=== PATIENT | male | born 1965 | race Caucasian/White ===

== ENCOUNTER 2017-06-02 07:53 | Day surgery (SDC) | payer BC ==
[2017-06-02] MEDS ORDERED: Propofol 200 MG/20 ML SDV ONE ×3 (08:16→09:41)
[2017-06-02] MEDS ORDERED: Midazolam 1 MG/ML 2 ML SDV ONE (08:16)
[2017-06-02] MEDS ORDERED: fentaNYL 100 MCG/2 ML SDV ONE (08:16)
[2017-06-02] MEDS ORDERED: Lactated Ringers 1,000 ML IV SCH (08:30)
--- NOTE | 2017-06-02 14:58 | OR ---
DATE OF PROCEDURE: 06/02/2017 PREOPERATIVE DIAGNOSES: 1. Gastroesophageal reflux disease. 2. Colon cancer screening. POSTOPERATIVE DIAGNOSES: 1. Gastroesophageal reflux disease. 2. Small gastric polyp. 3. Colonic diverticulosis. 4. Small colon polyp, 20 cm from the anal verge. PROCEDURE: Esophagogastroduodenoscopy with biopsy resection of small gastric polyp, biopsy of gastroesophageal junction, colonoscopy to the cecum with biopsy resection of small polyp 20 cm from the anal verge. SURGEON: Roger Jovel MD. ANESTHESIA: IV anesthesia with monitored anesthesia care. INDICATION: This 51-year-old white male is referred for upper and lower endoscopy. Indication for upper endoscopy is gastroesophageal reflux disease. He is taking a proton pump inhibitor. Indication for colonoscopy is colon cancer screening. He has never had a colonoscopic exam. I counseled him for upper and lower endoscopy with possible biopsy and/or polypectomy including risks and alternatives, and he gave his informed consent to proceed. PROCEDURE IN DETAIL: The patient was placed in the left lateral decubitus position. IV anesthesia was administered by the Anesthesia Service. Time-out was held. The flexible video Olympus upper endoscope was passed through his mouth, down the esophagus, and into his stomach. The scope was easily passed through the pylorus into the duodenum , reaching its third portion. The scope was then slowly withdrawn, examining the mucosa throughout. The duodenal mucosa appeared unremarkable. The scope was brought back through the pylorus. The antrum appeared unremarkable. The scope was retroflexed, the proximal stomach appeared unremarkable. The scope was straightened and brought up in the stomach. Here we saw a small polyp, which was removed with a single bite of the biopsy forceps. It has the appearance of a fundic gland polyp. The scope was brought up to the GE junction. This appeared fairly unremarkable. There was some irregularity of the Z-line. We did obtain multiple, totalling six biopsies of the gastroesophageal junction. The scope was then brought proximally up through the remainder of the esophagus, which otherwise appeared unremarkable and it was removed. Next a rectal exam was performed, which was unremarkable. The flexible video Olympus colonoscope was introduced through his anus, up his rectum, and out his colon all way to the cecum. Once the cecum was reached, the scope was slowly withdrawn, examining the mucosa throughout. We did see a few scattered, both right and left-sided diverticula. There was no bleeding or inflammation associated with any of them. At 20 cm from the anal verge, we encountered a small polyp, which was removed with the biopsy forceps. It has the appearance of a hyperplastic polyp. The scope was brought back into the rectum, where it was retroflexed. The distal rectum appeared unremarkable. The scope was straightened and removed. He tolerated the procedure well. Roger Jovel MD /[id number] MTDD
== END 2017-06-02 10:55 | disposition home or self-care (01) ==
LOC: JP.SDS 07:53
PROVIDERS: ATTEND Surgery
DX: Z12.11 Encounter for screening for malignant neoplasm of colon (principal); K63.5 Polyp of colon; K57.30 Diverticulosis of large intestine without perforation or abscess without bleeding; K31.7 Polyp of stomach and duodenum; K21.9 Gastro-esophageal reflux disease without esophagitis
CPT/HCPCS: 43239; 45380; J2250; J2704; J3010; J7120; 88305

== ENCOUNTER 2019-04-12 15:11 | Inpatient (IN) | payer BC ==
[2019-04-12] MEDS ORDERED: Lactated Ringers 1,000 ML IV ONE (16:39)
--- NOTE | 2019-04-12 16:47 | EDM.PDOC ---
ED HPI GENERAL MEDICAL PROBLEM - General Chief Complaint: Abdominal Pain Stated Complaint: ABD PAIN LOWER LEFT Time Seen by Provider: 04/12/19 16:25 Source of Information: Reports: Patient, Old Records, RN History Limitations: Reports: No Limitations - History of Present Illness INITIAL COMMENTS - FREE TEXT/NARRATIVE: 53 yo male presents with about a 1.5 day hx of progressive LLQ abdominal pain. Had some nausea, but no vomiting. No BM for a couple days. Not aware of fever. No hx of any abdominal surgeries. Onset: Gradual Onset Date: 04/11/19 Duration: Day(s): (1.5), Getting Worse Location: Reports: Abdomen (LLQ) Quality: Reports: Ache, Pressure Severity: Moderate Improves with: Reports: Rest Worsens with: Reports: Other (pushing over area if the worst.) Context: Reports: Other (see HPI) Associated Symptoms: Reports: Fever/Chills (chills, ? not sure about fever.), Nausea/Vomiting (no vomiting), Other (no BM x 2d). Denies: Rash Treatments DATA SYSTEMS MANAGER: Reports: Other (see below) (none) Left Lower Abdominal Pain Score (Numeric/FACES): 8 - Related Data Allergies Allergy/AdvReac Type Severity Reaction Status Date / Time No Known Allergies Allergy Verified 04/12/19 16:27 Home Meds: Home Meds NK [No Known Home Meds] 04/12/19 [History] Past Medical History HEENT History: Reports: Impaired Vision Respiratory History: Reports: Sleep Apnea Gastrointestinal History: Reports: GERD Musculoskeletal History: Reports: Fracture, Osteoarthritis Endocrine/Metabolic History: Reports: Obesity/BMI 30+ - Infectious Disease History Infectious Disease History: Reports: Chicken Pox - Past Surgical History HEENT Surgical History: Reports: Eye Surgery, Other (See Below) Other HEENT Surgeries/Procedures: cyst removed behind eye, lazy eye surgery GI Surgical History: Reports: Colonoscopy Musculoskeletal Surgical History: Reports: Other (See Below) Other Musculoskeletal Surgeries/Procedures:: Ankle screws Social & Family History - Tobacco Use Smoking Status *Q: Never Smoker - Caffeine Use Caffeine Use: Reports: Coffee - Alcohol Use Days Per Week of Alcohol Use: 2 Number of Drinks Per Day: 5 Total Drinks Per Week: 10 - Recreational Drug Use Recreational Drug Use: No ED ROS GENERAL - Review of Systems Review Of Systems: See Below Constitutional: Reports: Chills HEENT: Reports: No Symptoms Respiratory: Reports: No Symptoms Cardiovascular: Reports: No Symptoms Endocrine: Reports: No Symptoms GI/Abdominal: Reports: Abdominal Pain, Constipation, Decreased Appetite, Nausea. Denies: Black Stool, Bloody Stool, Diarrhea, Distension, Flatus, Hematemesis, Hematochezia, Melena, Vomiting : Reports: No Symptoms Musculoskeletal: Reports: No Symptoms Skin: Reports: No Symptoms Neurological: Reports: No Symptoms Psychiatric: Reports: No Symptoms Hematologic/Lymphatic: Reports: No Symptoms ED EXAM, GI/ABD - Physical Exam Exam: See Below Exam Limited By: No Limitations General Appearance: Alert, WD/WN, No Apparent Distress, Obese Eyes: Bilateral: Normal Appearance Ears: Normal External Exam, Normal Canal, Hearing Grossly Normal Nose: Normal Inspection, No Blood Throat/Mouth: Normal Inspection, Normal Lips, Normal Oropharynx, Normal Voice, No Airway Compromise Head: Atraumatic, Normocephalic Neck: Normal Inspection Respiratory/Chest: No Respiratory Distress, Lungs Clear, Normal Breath Sounds, No Accessory Muscle Use Cardiovascular: Regular Rate, Rhythm, No Edema GI/Abdominal Exam: Normal Bowel Sounds, Soft, No Distention, Tender (LLQ), Hernia (? indirect inguinal hernia LLQ on palpation.), Other (Obese). No: Distended (Male) Exam: No: Inguinal Lymphadenopathy Back Exam: Normal Inspection. No: CVA Tenderness (R), CVA Tenderness (L) Extremities: Normal Inspection, Normal Range of Motion, Non-Tender, No Pedal Edema Neurological: Alert, Oriented, CN II-XII Intact, Normal Cognition, No Motor/ Sensory Deficits Psychiatric: Normal Affect, Normal Mood Skin Exam: Warm, Dry, Intact, Normal Color, No Rash Course - Vital Signs Text/Narrative:: Dr. Doty here to see patient, 1757h Last Recorded V/S: Last Vital Signs Temp 36.7 C 04/12/19 16:26 Pulse 111 H 04/12/19 16:26 Resp 16 04/12/19 16:26 BP 134/91 H 04/12/19 16:26 Pulse Ox 94 L 04/12/19 16:26 - Orders/Labs/Meds Orders: Active Orders 24 hr Category Date Time Status CULTURE BLOOD [BC] Stat Lab 04/12/19 17:10 Received CULTURE BLOOD [BC] Stat Lab 04/12/19 17:20 Received Iopamidol [Isovue-300 (61%)] Med 04/12/19 17:00 Active 150 ml IV . DIRECTED Sodium Chloride 0.9% [Normal Saline] 80 ml Med 04/12/19 17:00 Active IV ASDIRECTED Sodium Chloride 0.9% [Saline Flush] Med 04/12/19 17:00 Active 10 ml FLUSH ASDIRECTED PRN Medication Orders Sodium Chloride (Normal Saline) 80 mls @ 3 mls/sec IV ASDIRECTED MIKEY Last Admin: 04/12/19 17:10 Dose: 3 mls/sec Iopamidol (Isovue-300 (61%)) 150 ml IV . DIRECTED MIKEY Last Admin: 04/12/19 17:10 Dose: 150 ml Sodium Chloride (Saline Flush) 10 ml FLUSH ASDIRECTED PRN PRN Reason: Keep Vein Open Last Admin: 04/12/19 17:10 Dose: 10 ml Labs: Laboratory Tests 04/12/19 04/12/19 04/12/19 Range/Units 16:45 16:46 16:46 WBC 20.5 H (4.5-11.0) K/uL RBC 5.37 (4.30-5.90) M/uL Hgb 15.7 H (12.0-15.0) g/dL Hct 47.5 (40.0-54.0) % MCV 89 (80-98) fL MCH 29 (27-31) pg MCHC 33 (32-36) % Plt Count 271 (150-400) K/uL Sodium 135 L (140-148) mmol/L Potassium 4.4 (3.6-5.2) mmol/L Chloride 98 L (100-108) mmol/L Carbon Dioxide 26 (21-32) mmol/L Anion Gap 15.4 H (5.0-14.0) mmol/L BUN 10 (7-18) mg/dL Creatinine 1.1 (0.8-1.3) mg/dL Est Cr Clr Drug Dosing 85.24 mL/min Estimated GFR (MDRD) > 60 (>60) Glucose 115 H (74-106) mg/dL Calcium 9.4 (8.5-10.1) mg/dL C-Reactive Protein 18.84 H (0.0-0.3) mg/dL Urine Color [place] A (YELLOW) Urine Appearance Clear (CLEAR) Urine pH 6.0 (5.0-8.0) Ur Specific [place] 1.020 (1.008-1.030) Urine Protein 30 H (NEGATIVE) mg/dL Urine Glucose (UA) Negative (NEGATIVE) mg/dL Urine Ketones 15 H (NEGATIVE) mg/dL Urine Occult Blood Trace-intact H (NEGATIVE) Urine Nitrite Negative (NEGATIVE) Urine Bilirubin Small H (NEGATIVE) Urine Urobilinogen 1.0 (0.2-1.0) EU/dL Ur Leukocyte Esterase Negative (NEGATIVE) Urine RBC 0-5 (0-5) Urine WBC 0-5 (0-5) Ur Epithelial Cells Few Amorphous Sediment Not seen Urine Bacteria Few Urine Mucus Many Meds: Medications Generic Name Dose Route Start Last Admin Trade Name Freq PRN Reason Stop Dose Admin Sodium Chloride 80 mls @ 3 mls/sec 04/12/19 17:00 04/12/19 17:10 Normal Saline IV 3 mls/sec ASDIRECTED MIKEY Administration Iopamidol 150 ml 04/12/19 17:00 04/12/19 17:10 Isovue-300 (61%) IV 150 ml . DIRECTED MIKEY Administration Sodium Chloride 10 ml 04/12/19 17:00 04/12/19 17:10 Saline Flush FLUSH 10 ml ASDIRECTED PRN Administration Keep Vein Open Discontinued Medications Generic Name Dose Route Start Last Admin Trade Name Freq PRN Reason Stop Dose Admin Lactated Ringer's 1,000 mls @ 1,000 mls/hr 04/12/19 16:39 04/12/19 17:00 Ringers, Lactated IV 04/12/19 17:38 1,000 mls/hr BOLUS ONE Administration - Radiology Interpretation Free Text/Narrative:: CT abd/pelvis with IV contrast- IMPRESSION: Thickening of the proximal sigmoid colon with adjacent inflammatory stranding consistent with diverticulitis. Hepatic steatosis. Dictated by Guilherme Perdue MD @ 04/12/2019 5:49:[address] Results Date: 04/12/19 Departure - Departure Time of Disposition: 18:00 Disposition: Admitted As Inpatient 66 Condition: Fair Clinical Impression: Diverticulitis - Discharge Information *PRESCRIPTION DRUG MONITORING PROGRAM REVIEWED*: No *COPY OF PRESCRIPTION DRUG MONITORING REPORT IN PATIENT JOANIE: No Referrals: Jesus White MD [Primary Care Provider] - Forms: ED Department Discharge - My Orders Last 24 Hours: My Active Orders 04/12/19 17:00 Iopamidol [Isovue-300 (61%)] 150 ml IV . DIRECTED Sodium Chloride 0.9% [Normal Saline] 80 ml IV ASDIRECTED Sodium Chloride 0.9% [Saline Flush] 10 ml FLUSH ASDIRECTED PRN 04/12/19 17:10 CULTURE BLOOD [BC] Stat 04/12/19 17:20 CULTURE BLOOD [BC] Stat - Assessment/Plan Last 24 Hours: My Active Orders 04/12/19 17:00 Iopamidol [Isovue-300 (61%)] 150 ml IV . DIRECTED Sodium Chloride 0.9% [Normal Saline] 80 ml IV ASDIRECTED Sodium Chloride 0.9% [Saline Flush] 10 ml FLUSH ASDIRECTED PRN 04/12/19 17:10 CULTURE BLOOD [BC] Stat 04/12/19 17:20 CULTURE BLOOD [BC] Stat
[2019-04-12] MEDS ORDERED: Iopamidol 612 MG/ML 150 ML Bottle IV SCH (17:00)
[2019-04-12] MEDS ORDERED: Sodium Chloride 0.9% 10 ML Syringe FLUSH PRN (17:00)
[2019-04-12] MEDS ORDERED: Sodium Chloride 0.9% 80 ML IV SCH (17:00)
--- NOTE | 2019-04-12 17:51 | CRLCT ---
INDICATION: Left lower quadrant pain, palpable abnormality TECHNIQUE: CT abdomen and pelvis acquired with IV contrast. 150 cc Isovue-300 COMPARISON: None FINDINGS: Lower chest: Unremarkable. Liver: Hepatic steatosis. Spleen: Unremarkable. Pancreas: Unremarkable. Gallbladder and bile ducts: Unremarkable. Kidneys: Unremarkable. Adrenal glands: Unremarkable. GI tract: And thickening of the proximal sigmoid colon with adjacent inflammatory stranding consistent with diverticulitis.. Appendix is normal. Vascular structures: Unremarkable. Lymph nodes: Unremarkable. Miscellaneous: Small fat containing umbilical hernia. No free air or significant free fluid. Pelvic Organs: Unremarkable. Bones: Unremarkable for age. IMPRESSION: Thickening of the proximal sigmoid colon with adjacent inflammatory stranding consistent with diverticulitis. Hepatic steatosis. Dictated by Guilherme Perdue MD @ 04/12/2019 5:49:31 PM Please note that all CT scans at this facility use dose modulation, iterative reconstruction, and/or weight-based dosing when appropriate to reduce radiation dose to as low as reasonably achievable. Dictated by: Guilherme Perdue MD @ 04/12/2019 17:49:39 (Electronically Signed)
[2019-04-12] MEDS ORDERED: metroNIDAZOLE/Normal Saline 500 MG in Premix Bag 1 BAG IV ONE (17:55)
[2019-04-12] MEDS ORDERED: Ciprofloxacin in D5W 400 MG in Premix Bag 1 BAG IV ONE ×2 (17:56)
--- NOTE | 2019-04-12 18:25 | PCM.HP.2 ---
H&P History of Present Illness - General Date of Service: 04/12/19 Admit Problem/Dx: Admission Diagnosis/Problem Admission Diagnosis/Problem Acute diverticulitis of intestine Source of Information: Patient, Provider History Limitations: Reports: No Limitations - History of Present Illness Initial Comments - Free Text/Narative: CC: my belly hurts HPI: Danial presents to the emergency room today with nearly 48 hours worth of progressive left lower quadrant abdominal pain He describes a constant ache which is mild and radiates throughout the left side and lower portion of his abdomen. When he moves around or sits up he has a moderate to moderately severe sharp pain that shoots through the left abdomen. If he lays still the pain gets better.Coughing makes the pain worse. He thought maybe he was constipated so he has tried some laxatives but has not had any results. he reports subjective fevers and had episodes of sweats at home. He has had episodes of nausea but no vomiting. He has never had anything like this in the past. He has not had a bowel movement in the past 2 days. Prior to that bowel movements were normal. No complaints of shortness of breath, chest tightness or change in urinary habits. He has been sitting around the past 2 days because he has not been feeling well and his back is achy. He has not had anything to eat for 2 days other than a bowl of ice cream last night. Fluid intake has been less than usual. Workup in the emergency room revealed a white blood cell count of more than 20, 000 and a CRP of more than 18. A CT scan of the abdomen and pelvis revealed sigmoid diverticulitis. He will be admitted for pain control and IV antibiotics. Left Lower Abdominal Pain Score (Numeric/FACES): 8 - Related Data Allergies/Adverse Reactions: Allergies Allergy/AdvReac Type Severity Reaction Status Date / Time No Known Allergies Allergy Verified 04/12/19 16:27 Home Medications: Home Meds NK [No Known Home Meds] 04/12/19 [History] Past Medical History HEENT History: Reports: Impaired Vision Respiratory History: Reports: Sleep Apnea Gastrointestinal History: Reports: GERD Musculoskeletal History: Reports: Fracture, Osteoarthritis Endocrine/Metabolic History: Reports: Obesity/BMI 30+ - Infectious Disease History Infectious Disease History: Reports: Chicken Pox - Past Surgical History HEENT Surgical History: Reports: Eye Surgery, Other (See Below) Other HEENT Surgeries/Procedures: cyst removed behind eye, lazy eye surgery GI Surgical History: Reports: Colonoscopy Musculoskeletal Surgical History: Reports: Other (See Below) Other Musculoskeletal Surgeries/Procedures:: Ankle screws Social & Family History - Family History GI: Denies: Diverticulitis - Tobacco Use Smoking Status *Q: Never Smoker - Caffeine Use Caffeine Use: Reports: Coffee - Alcohol Use Days Per Week of Alcohol Use: 2 Number of Drinks Per Day: 5 Total Drinks Per Week: 10 - Recreational Drug Use Recreational Drug Use: No H&P Review of Systems - Review of Systems: Review Of Systems: See Below Free Text/Narrative: A complete 12 point review of systems was obtained. Pertinent positives and negatives are noted in the history of present illness. All other systems were reviewed and were negative except as noted. Exam - Exam Exam: See Below - Vital Signs Vital Signs: Last Vital Signs Temp 36.7 C 04/12/19 16:26 Pulse 111 H 04/12/19 16:26 Resp 16 04/12/19 16:26 BP 134/91 H 04/12/19 16:26 Pulse Ox 94 L 04/12/19 16:26 Weight: 156 kg - Exam Quality Assessment: No: Supplemental Oxygen General: Alert, Oriented, Cooperative. No: Mild Distress HEENT: Conjunctiva Clear, Mucosa Moist & [place]. No: Scleral Icterus Neck: Supple, Trachea Midline Lungs: Clear to Auscultation, Normal Respiratory Effort Cardiovascular: Regular Rate, Regular Rhythm GI/Abdominal Exam: Normal Bowel Sounds, Soft, No Distention, Tender (LLQ). No: Guarding Extremities: No Pedal Edema. No: Increased Warmth Skin: Warm, Dry Neuro Extensive - Mental Status: Alert, Oriented x3, Nl Response to Commands Neuro Extensive - Motor, Sensory, Reflexes: No: Dysarthria, Abnormal Motor, Tremor Psychiatric: Alert, Normal Affect - Patient Data Lab Results Last 24 hrs: Laboratory Results - last 24 hr 04/12/19 04/12/19 04/12/19 Range/Units 16:45 16:46 16:46 WBC 20.5 H (4.5-11.0) K/uL RBC 5.37 (4.30-5.90) M/uL Hgb 15.7 H (12.0-15.0) g/dL Hct 47.5 (40.0-54.0) % MCV 89 (80-98) fL MCH 29 (27-31) pg MCHC 33 (32-36) % Plt Count 271 (150-400) K/uL Sodium 135 L (140-148) mmol/L Potassium 4.4 (3.6-5.2) mmol/L Chloride 98 L (100-108) mmol/L Carbon Dioxide 26 (21-32) mmol/L Anion Gap 15.4 H (5.0-14.0) mmol/L BUN 10 (7-18) mg/dL Creatinine 1.1 (0.8-1.3) mg/dL Est Cr Clr Drug Dosing 85.24 mL/min Estimated GFR (MDRD) > 60 (>60) Glucose 115 H (74-106) mg/dL Calcium 9.4 (8.5-10.1) mg/dL C-Reactive Protein 18.84 H (0.0-0.3) mg/dL Urine Color [place] A (YELLOW) Urine Appearance Clear (CLEAR) Urine pH 6.0 (5.0-8.0) Ur Specific [place] 1.020 (1.008-1.030) Urine Protein 30 H (NEGATIVE) mg/dL Urine Glucose (UA) Negative (NEGATIVE) mg/dL Urine Ketones 15 H (NEGATIVE) mg/dL Urine Occult Blood Trace-intact H (NEGATIVE) Urine Nitrite Negative (NEGATIVE) Urine Bilirubin Small H (NEGATIVE) Urine Urobilinogen 1.0 (0.2-1.0) EU/dL Ur Leukocyte Esterase Negative (NEGATIVE) Urine RBC 0-5 (0-5) Urine WBC 0-5 (0-5) Ur Epithelial Cells Few Amorphous Sediment Not seen Urine Bacteria Few Urine Mucus Many Result Diagrams: 04/12/19 16:46 04/12/19 16:46 Imaging Impressions Last 24 hrs: CT abd/pelvis - images personally reviewed - there is inflammation and swelling of the proximal sigmoid colon consistent with diverticulitis. No abscess or microperforation. *Q Meaningful Use (ADM) - VTE Risk Assess *Q Each Risk Factor Represents 1 Point: Age 41 - 59 years, Obesity ( BMI > 25 kg/m2 ) Total Score 1 Point Risk Factors: 2 Each Risk Factor Represents 2 Points: None Total Score 2 Point Risk Factors: 0 Each Risk Factor Represents 3 Points: None Total Score 3 Point Risk Factors: 0 Each Risk Factor Represents 5 Points: None Total Score 5 Point Risk Factors: 0 Venous Thromboembolism Risk Factor Score *Q: 2 - Problem List (1) Diverticulitis SNOMED Code(s): 715653973 ICD Code: K57.92 - DVTRCLI OF INTEST, PART UNSP, W/O PERF OR ABSCESS W/O BLEED Status: Acute Current Visit: Yes Problem List Initiated/Reviewed/Updated: Yes Orders Last 24hrs: Active Orders 24 hr Category Date Time Status Patient Status Manage Transfer [TRANSFER] Routine ADT 04/12/19 18:18 Ordered CULTURE BLOOD [BC] Stat Lab 04/12/19 17:10 Received CULTURE BLOOD [BC] Stat Lab 04/12/19 17:20 Received Ciprofloxacin in D5W [Cipro in D5W 400 MG/200 ML] 400 Med 04/12/19 17:56 Active mg Premix Bag 1 bag IV ONETIME Iopamidol [Isovue-300 (61%)] Med 04/12/19 17:00 Active 150 ml IV . DIRECTED Sodium Chloride 0.9% [Normal Saline] 80 ml Med 04/12/19 17:00 Active IV ASDIRECTED Sodium Chloride 0.9% [Saline Flush] Med 04/12/19 17:00 Active 10 ml FLUSH ASDIRECTED PRN metroNIDAZOLE/Normal Saline [Flagyl 500 MG in NS 100 ML Med 04/12/19 17:55 Active ] 500 mg Premix Bag 1 bag IV ONETIME Resuscitation Status Routine Resus Stat 04/12/19 18:19 Ordered Medication Orders Sodium Chloride (Normal Saline) 80 mls @ 3 mls/sec IV ASDIRECTED [facility] Last Admin: 04/12/19 17:10 Dose: 3 mls/sec Ciprofloxacin/Dextrose 400 mg/ (Premix) 200 mls @ 200 mls/hr IV ONETIME ONE Stop: 04/12/19 18:55 Metronidazole 500 mg/ Premix 100 mls @ 100 mls/hr IV ONETIME ONE Stop: 04/12/19 18:54 Iopamidol (Isovue-300 (61%)) 150 ml IV . DIRECTED [facility] Last Admin: 04/12/19 17:10 Dose: 150 ml Sodium Chloride (Saline Flush) 10 ml FLUSH ASDIRECTED PRN PRN Reason: Keep Vein Open Last Admin: 04/12/19 17:10 Dose: 10 ml Assessment/Plan Comment:: ASSESSMENT AND PLAN - Acute sigmoid diverticulitis - no perforation or abscess. Significant pain at this time and he has had poor intake so he is not safe for outpatient management. No history of similar infections. No evidence for sepsis. -Antibiotic coverage with ciprofloxacin and metronidazole -IV fluids -Pain and nausea control -Full liquid diet Obstructive sleep apnea - uses a CPAP machine at home. -obtain cpap for use if able Maintenance issues - - DVT prophylaxis - mechanical - GI prophylaxis - not indicated - Nutrition - full liquid - [place] catheter - not indicated CODE STATUS - FULL Admission justification - This patient will be admitted for inpatient services and is medically appropriate meeting medical necessity for inpatient admission as outlined in my documentation. I reasonably expect the patient will require inpatient services that span a period time over 2 midnights. I reasonably expect this patient to be discharged or transferred within 96 hours after admission to the [facility]. Disposition - I anticipate discharge home after the hospital the hospital stay Primary care physician - Dr Cindy Doty M.D. - Mortality Measure Prognosis:: Good
[2019-04-12] MEDS ORDERED: Ondansetron 4 MG/2 ML SDV IV PRN (18:50)
[2019-04-12] MEDS ORDERED: LORazepam 2 MG/ML SDV IVPUSH PRN (18:50)
[2019-04-12] MEDS ORDERED: Sodium Chloride 0.9% 1,000 ML IV SCH (18:50)
[2019-04-12] MEDS ORDERED: Morphine 2 MG/ML Syringe IVPUSH PRN (18:50)
[2019-04-12] MEDS ORDERED: Ondansetron 4 MG Tab.DIS PO PRN (18:50)
[2019-04-12] MEDS ORDERED: Magnesium Hydroxide 400 MG/5 ML Susp 30 ML Cup PO PRN (18:50)
[2019-04-12] MEDS ORDERED: oxyCODONE 5 MG Tab PO PRN (18:50)
[2019-04-12] MEDS: Ibuprofen 600 MG Tab PO PRN (20:07)
[2019-04-12] MEDS: Lactobacillus Rhamnosus GG (Probiotic) Cap PO SCH (20:14)
[2019-04-13] MEDS: metroNIDAZOLE/Normal Saline 500 MG in Premix Bag 1 BAG IV SCH ×3 (01:07→17:06)
[2019-04-13] MEDS: Ciprofloxacin in D5W 400 MG in Premix Bag 1 BAG IV SCH ×4 (06:21→18:26)
--- NOTE | 2019-04-13 09:37 | PCM.PN ---
- General Info Date of Service: 04/13/19 Subjective Update: No acute events overnight. He did have a fever >101 around the time of admission. He had a normal BM this morning. Abdominal pain has decreased and is mild to moderate. Still no appetite. No shortness of breath. Feeling better today. Functional Status: Reports: Pain Controlled, Tolerating Diet - Review of Systems General: Reports: Fever Gastrointestinal: Reports: Abdominal Pain - Patient Data Vitals - Most Recent: Last Vital Signs Temp 37.4 C 04/13/19 08:36 Pulse 70 04/13/19 08:36 Resp 18 04/13/19 08:36 BP 136/75 04/13/19 08:36 Pulse Ox 97 04/13/19 05:00 Weight - Most Recent: 156 kg I&O - Last 24 Hours: Intake & Output 04/12/19 04/13/19 04/13/19 22:59 06:59 14:59 Intake Total 240 2384 360 Output Total 925 400 Balance 240 1459 -40 Lab Results Last 24 Hours: Laboratory Results - last 24 hr 04/12/19 04/12/19 04/12/19 Range/Units 16:45 16:46 16:46 WBC 20.5 H (4.5-11.0) K/uL RBC 5.37 (4.30-5.90) M/uL Hgb 15.7 H (12.0-15.0) g/dL Hct 47.5 (40.0-54.0) % MCV 89 (80-98) fL MCH 29 (27-31) pg MCHC 33 (32-36) % Plt Count 271 (150-400) K/uL Sodium 135 L (140-148) mmol/L Potassium 4.4 (3.6-5.2) mmol/L Chloride 98 L (100-108) mmol/L Carbon Dioxide 26 (21-32) mmol/L Anion Gap 15.4 H (5.0-14.0) mmol/L BUN 10 (7-18) mg/dL Creatinine 1.1 (0.8-1.3) mg/dL Est Cr Clr Drug Dosing 85.24 mL/min Estimated GFR (MDRD) > 60 (>60) Glucose 115 H (74-106) mg/dL Calcium 9.4 (8.5-10.1) mg/dL C-Reactive Protein 18.84 H (0.0-0.3) mg/dL Urine Color [place] A (YELLOW) Urine Appearance Clear (CLEAR) Urine pH 6.0 (5.0-8.0) Ur Specific [place] 1.020 (1.008-1.030) Urine Protein 30 H (NEGATIVE) mg/dL Urine Glucose (UA) Negative (NEGATIVE) mg/dL Urine Ketones 15 H (NEGATIVE) mg/dL Urine Occult Blood Trace-intact H (NEGATIVE) Urine Nitrite Negative (NEGATIVE) Urine Bilirubin Small H (NEGATIVE) Urine Urobilinogen 1.0 (0.2-1.0) EU/dL Ur Leukocyte Esterase Negative (NEGATIVE) Urine RBC 0-5 (0-5) Urine WBC 0-5 (0-5) Ur Epithelial Cells Few Amorphous Sediment Not seen Urine Bacteria Few Urine Mucus Many 04/13/19 04/13/19 Range/Units 04:30 04:30 WBC 15.4 H (4.5-11.0) K/uL RBC 4.56 (4.30-5.90) M/uL Hgb 13.6 D (12.0-15.0) g/dL Hct 41.2 (40.0-54.0) % MCV 90 (80-98) fL MCH 30 (27-31) pg MCHC 33 (32-36) % Plt Count 217 (150-400) K/uL Sodium 136 L (140-148) mmol/L Potassium 3.9 (3.6-5.2) mmol/L Chloride 102 (100-108) mmol/L Carbon Dioxide 27 (21-32) mmol/L Anion Gap 10.9 (5.0-14.0) mmol/L BUN 11 (7-18) mg/dL Creatinine 1.0 (0.8-1.3) mg/dL Est Cr Clr Drug Dosing 93.77 mL/min Estimated GFR (MDRD) > 60 (>60) Glucose 116 H (74-106) mg/dL Calcium 8.5 (8.5-10.1) mg/dL C-Reactive Protein (0.0-0.3) mg/dL Urine Color (YELLOW) Urine Appearance (CLEAR) Urine pH (5.0-8.0) Ur Specific [place] (1.008-1.030) Urine Protein (NEGATIVE) mg/dL Urine Glucose (UA) (NEGATIVE) mg/dL Urine Ketones (NEGATIVE) mg/dL Urine Occult Blood (NEGATIVE) Urine Nitrite (NEGATIVE) Urine Bilirubin (NEGATIVE) Urine Urobilinogen (0.2-1.0) EU/dL Ur Leukocyte Esterase (NEGATIVE) Urine RBC (0-5) Urine WBC (0-5) Ur Epithelial Cells Amorphous Sediment Urine Bacteria Urine Mucus Med Orders - Current: Current Medications Acetaminophen (Tylenol) 650 mg PO Q4H PRN PRN Reason: Pain (Mild 1-3)/fever Ciprofloxacin/Dextrose 400 mg/ (Premix) 200 mls @ 200 mls/hr IV Q12H [facility] Last Admin: 04/13/19 06:21 Dose: 200 mls/hr Metronidazole 500 mg/ Premix 100 mls @ 100 mls/hr IV Q8H [facility] Last Admin: 04/13/19 01:07 Dose: 100 mls/hr Ibuprofen (Motrin) 600 mg PO Q6H PRN PRN Reason: Pain/Fever Last Admin: 04/12/19 20:07 Dose: 600 mg Lactobacillus Rhamnosus (Culturelle) 1 cap PO BID [facility] Last Admin: 04/12/19 20:14 Dose: 1 cap Lorazepam (Ativan) 0.5 mg IVPUSH Q4H PRN PRN Reason: Nausea/Vomiting Magnesium Hydroxide (Milk Of Magnesia) 30 ml PO Q12H PRN PRN Reason: Constipation Morphine Sulfate (Morphine) 2 mg IVPUSH Q2H PRN PRN Reason: Pain (severe 7-10) Ondansetron HCl (Zofran Odt) 4 mg PO Q6H PRN PRN Reason: Nausea able to take PO Ondansetron HCl (Zofran) 4 mg IV Q6H PRN PRN Reason: Nausea/Vomiting Oxycodone HCl (Oxycodone) 5 mg PO Q4H PRN PRN Reason: Pain (moderate 4-6) Senna/Docusate Sodium (Senna Plus) 1 tab PO BID PRN PRN Reason: Constipation Sodium Chloride (Saline Flush) 10 ml FLUSH ASDIRECTED PRN PRN Reason: Keep Vein Open Last Admin: 04/12/19 17:10 Dose: 10 ml Discontinued Medications Lactated Ringer's (Ringers, Lactated) 1,000 mls @ 1,000 mls/hr IV BOLUS ONE Stop: 04/12/19 17:38 Last Admin: 04/12/19 17:00 Dose: 1,000 mls/hr Sodium Chloride (Normal Saline) 80 mls @ 3 mls/sec IV ASDIRECTED [facility] Last Admin: 04/12/19 17:10 Dose: 3 mls/sec Ciprofloxacin/Dextrose 400 mg/ (Premix) 200 mls @ 200 mls/hr IV ONETIME ONE Stop: 04/12/19 18:55 Last Admin: 04/12/19 18:39 Dose: 200 mls/hr Metronidazole 500 mg/ Premix 100 mls @ 100 mls/hr IV ONETIME ONE Stop: 04/12/19 18:54 Last Admin: 04/12/19 18:38 Dose: 100 mls/hr Sodium Chloride (Normal Saline) 1,000 mls @ 100 mls/hr IV ASDIRECTED [facility] Last Admin: 04/13/19 06:12 Dose: 100 mls/hr Iopamidol (Isovue-300 (61%)) 150 ml IV . DIRECTED [facility] Last Admin: 04/12/19 17:10 Dose: 150 ml - Exam Quality Assessment: No: Supplemental Oxygen General: Alert, Oriented, Cooperative, No Acute Distress Lungs: Normal Respiratory Effort GI/Abdominal Exam: Soft, No Distention, Tender (LLQ) Extremities: No Pedal Edema Psy/Mental Status: Alert, Normal Affect - Problem List & Annotations (1) Diverticulitis SNOMED Code(s): 666025649 Code(s): K57.92 - DVTRCLI OF INTEST, PART UNSP, W/O PERF OR ABSCESS W/O BLEED Status: Acute Current Visit: Yes - Problem List Review Problem List Initiated/Reviewed/Updated: Yes - My Orders Last 24 Hours: My Active Orders 04/12/19 18:19 Resuscitation Status Routine 04/12/19 18:50 Patient Status [ADT] Routine Antiembolic Devices [RC] .Routine Intake and Output [RC] QSHIFT Notify Provider Vital Signs [RC] ASDIRECTED Oxygen Therapy [RC] PRN Up ad Fela [RC] ASDIRECTED VTE/DVT Education [RC] Per Unit Routine Vital Signs [RC] Q4H Acetaminophen [Tylenol] 650 mg PO Q4H PRN Docusate Sodium/Sennosides [Senna Plus] 1 tab PO BID PRN Ibuprofen [Motrin] 600 mg PO Q6H PRN LORazepam [Ativan] 0.5 mg IVPUSH Q4H PRN Magnesium Hydroxide [Milk of Magnesia] 30 ml PO Q12H PRN Morphine 2 mg IVPUSH Q2H PRN Ondansetron [Zofran ODT] 4 mg PO Q6H PRN Ondansetron [Zofran] 4 mg IV Q6H PRN oxyCODONE 5 mg PO Q4H PRN Sequential Compression Device [OM.PC] Routine 04/12/19 21:00 Lactobacillus Rhamnosus GG [Culturelle] 1 cap PO BID 04/12/19 Dinner Full Liquid Diet [DIET] 04/13/19 02:00 metroNIDAZOLE/Normal Saline [Flagyl 500 MG in NS 100 ML] 500 mg Premix Bag 1 bag IV Q8H 04/13/19 03:51 CPAP Noctural Home [RT BiPAP/CPAP] [RC] ASDIRECTED 04/13/19 06:00 Ciprofloxacin in D5W [Cipro in D5W 400 MG/200 ML] 400 mg Premix Bag 1 bag IV Q12H 04/13/19 09:45 Sodium Chloride 0.9% [Normal Saline] 1,000 ml IV ASDIRECTED 04/13/19 Lunch GI Soft Low Fiber [Soft Diet] [DIET] 04/14/19 05:00 CBC W/O DIFF,HEMOGRAM [HEME] Timed (1) - Plan Plan:: ASSESSMENT AND PLAN - Acute sigmoid diverticulitis - no perforation or abscess. Febrile last night but none since that time. White blood cell count trending down. Abdominal pain improving. -Antibiotic coverage with ciprofloxacin and metronidazole -IV fluids at TKO -Pain and nausea control -Soft diet Obstructive sleep apnea - uses a CPAP machine at home. -obtain cpap for use if able Maintenance issues - - DVT prophylaxis - mechanical - GI prophylaxis - not indicated - Nutrition - full liquid Disposition - I anticipate discharge home after the hospital the hospital stay, likely tomorrow if stable overnight Primary care physician - Dr Cindy Doty M.D.
[2019-04-13] MEDS ORDERED: Sodium Chloride 0.9% 1,000 ML IV SCH (09:45)
[2019-04-13] MEDS: Lactobacillus Rhamnosus GG (Probiotic) Cap PO SCH ×2 (09:58→20:20)
[2019-04-13] MEDS: Acetaminophen 325 MG Tab PO PRN ×2 (11:09→20:19)
[2019-04-13] MEDS: Ibuprofen 600 MG Tab PO PRN (12:27)
[2019-04-14] MEDS: metroNIDAZOLE/Normal Saline 500 MG in Premix Bag 1 BAG IV SCH ×2 (01:44→09:20)
[2019-04-14] MEDS: Ciprofloxacin in D5W 400 MG in Premix Bag 1 BAG IV SCH ×2 (05:29)
[2019-04-14] MEDS: Lactobacillus Rhamnosus GG (Probiotic) Cap PO SCH (09:20)
--- NOTE | 2019-04-14 10:45 | PCM.DCSUM1 ---
Discharge Summary - Hospital Course Brief History: 53-year-old male with history of obesity and obstructive sleep apnea who presented with left lower quadrant abdominal pain. He was admitted for management of acute diverticulitis without perforation or abscess. Diagnosis: Stroke: No - Discharge Data Discharge Date: 04/14/19 Discharge Disposition: Home, Self-Care 01 Condition: Good - Referral to Home Health Primary Care Physician: Jesus White MD - Discharge Diagnosis/Problem(s) (1) Diverticulitis SNOMED Code(s): 841561570 ICD Code: K57.92 - DVTRCLI OF INTEST, PART UNSP, W/O PERF OR ABSCESS W/O BLEED Status: Acute Current Visit: Yes - Patient Summary/Data Hospital Course: Dinesh presented to the emergency room with acute left lower quadrant abdominal pain. Workup in the emergency room revealed leukocytosis with a white blood cell count more than 20,[address] evidence for acute sigmoid diverticulitis. There is no evidence for perforation or abscess. He was started on ciprofloxacin and metronidazole and admitted to the hospital for symptom management as well as hydration and IV antibiotic therapy. Over the next couple of days he made steady progress. His abdominal pain has improved significantly but not quite resolved. He has not had any fevers other than right around the time of admission. He has been able to advance his diet without any increase in his pain. He has had a normal bowel movement. He has been up and walking around without significant pain. I believe he is safe for outpatient management at this time. He will be discharged home with the plan to complete 6-1/2 days of additional antibiotic therapy. He will follow-up if symptoms do not continue to get better. - Patient Instructions Diet: Regular Diet as Tolerated (soft and bland foods for a few days ) Activity: As Tolerated Showering/Bathing: May Shower Notify Provider of: Fever, Increased Pain, Nausea and/or Vomiting Other/Special Instructions: 1. You were in the hospital for management of acute sigmoid diverticulitis. Your condition has been improving with antibiotic therapy. I recommend that you maintain a soft, bland diet for the next several days. You should continue to take antibiotics as outlined below. You should take ciprofloxacin 500 mg twice daily for 13 more doses. Your next dose is due tonight. You should also take metronidazole 500 mg 3 times daily. Your next dose is due this afternoon. 2. Follow up this week if your symptoms do not continue to improve. - Discharge Plan *PRESCRIPTION DRUG MONITORING PROGRAM REVIEWED*: No *COPY OF PRESCRIPTION DRUG MONITORING REPORT IN PATIENT JOANIE: No Prescriptions/Med Rec: Ciprofloxacin [Ciprofloxacin HCl] 500 mg PO BID #13 tab metroNIDAZOLE [Metronidazole] 500 mg PO TID #20 tablet Home Medications: Home Meds Ciprofloxacin [Ciprofloxacin HCl] 500 mg PO BID #13 tab 04/14/19 [Rx] metroNIDAZOLE [Metronidazole] 500 mg PO TID #20 tablet 04/14/19 [Rx] Oxygen Therapy Mode: Room Air Patient Handouts: Diverticulitis Referrals: Jesus White MD [Primary Care Provider] - (f/u this week if symptoms do not continue to improve ) - Discharge Summary/Plan Comment DC Time >30 min.: No - Patient Data Vitals - Most Recent: Last Vital Signs Temp 37.3 C 04/14/19 08:28 Pulse 60 04/14/19 08:28 Resp 18 04/14/19 04:00 BP 120/89 04/14/19 08:28 Pulse Ox 97 04/14/19 04:00 Weight - Most Recent: 156 kg I&O - Last 24 hours: Intake & Output 04/13/19 04/14/19 04/14/19 22:59 06:59 14:59 Intake Total 1044 300 740 Output Total 575 1600 Balance 469 300 -860 Lab Results - Last 24 hrs: Laboratory Results - last 24 hr 04/14/19 Range/Units 05:40 WBC 12.4 H (4.5-11.0) K/uL RBC 4.54 (4.30-5.90) M/uL Hgb 13.5 (12.0-15.0) g/dL Hct 41.2 (40.0-54.0) % MCV 91 (80-98) fL MCH 30 (27-31) pg MCHC 33 (32-36) % Plt Count 242 (150-400) K/uL GAVIN Results - Last 24 hrs: Microbiology 04/12/19 17:20 Aerobic Blood Culture - Preliminary Blood - Arm, Left NO GROWTH AFTER 1 DAY Anaerobic Blood Culture - Preliminary NO GROWTH AFTER 1 DAY 04/12/19 17:10 Aerobic Blood Culture - Preliminary Blood - Arm, Left NO GROWTH AFTER 1 DAY Anaerobic Blood Culture - Preliminary NO GROWTH AFTER 1 DAY Med Orders - Current: Current Medications Acetaminophen (Tylenol) 650 mg PO Q4H PRN PRN Reason: Pain (Mild 1-3)/fever Last Admin: 04/13/19 20:19 Dose: 650 mg Ciprofloxacin/Dextrose 400 mg/ (Premix) 200 mls @ 200 mls/hr IV Q12H [facility] Last Admin: 04/14/19 05:29 Dose: 200 mls/hr Metronidazole 500 mg/ Premix 100 mls @ 100 mls/hr IV Q8H [facility] Last Admin: 04/14/19 09:20 Dose: 100 mls/hr Sodium Chloride (Normal Saline) 1,000 mls @ 25 mls/hr IV ASDIRECTED [facility] Ibuprofen (Motrin) 600 mg PO Q6H PRN PRN Reason: Pain/Fever Last Admin: 04/13/19 12:27 Dose: 600 mg Lactobacillus Rhamnosus (Culturelle) 1 cap PO BID [facility] Last Admin: 04/14/19 09:20 Dose: 1 cap Lorazepam (Ativan) 0.5 mg IVPUSH Q4H PRN PRN Reason: Nausea/Vomiting Magnesium Hydroxide (Milk Of Magnesia) 30 ml PO Q12H PRN PRN Reason: Constipation Morphine Sulfate (Morphine) 2 mg IVPUSH Q2H PRN PRN Reason: Pain (severe 7-10) Ondansetron HCl (Zofran Odt) 4 mg PO Q6H PRN PRN Reason: Nausea able to take PO Ondansetron HCl (Zofran) 4 mg IV Q6H PRN PRN Reason: Nausea/Vomiting Oxycodone HCl (Oxycodone) 5 mg PO Q4H PRN PRN Reason: Pain (moderate 4-6) Senna/Docusate Sodium (Senna Plus) 1 tab PO BID PRN PRN Reason: Constipation Sodium Chloride (Saline Flush) 10 ml FLUSH ASDIRECTED PRN PRN Reason: Keep Vein Open Last Admin: 04/12/19 17:10 Dose: 10 ml Discontinued Medications Lactated Ringer's (Ringers, Lactated) 1,000 mls @ 1,000 mls/hr IV BOLUS ONE Stop: 04/12/19 17:38 Last Admin: 04/12/19 17:00 Dose: 1,000 mls/hr Sodium Chloride (Normal Saline) 80 mls @ 3 mls/sec IV ASDIRECTED [facility] Last Admin: 04/12/19 17:10 Dose: 3 mls/sec Ciprofloxacin/Dextrose 400 mg/ (Premix) 200 mls @ 200 mls/hr IV ONETIME ONE Stop: 04/12/19 18:55 Last Admin: 04/12/19 18:39 Dose: 200 mls/hr Metronidazole 500 mg/ Premix 100 mls @ 100 mls/hr IV ONETIME ONE Stop: 04/12/19 18:54 Last Admin: 04/12/19 18:38 Dose: 100 mls/hr Sodium Chloride (Normal Saline) 1,000 mls @ 100 mls/hr IV ASDIRECTED [facility] Last Admin: 04/13/19 06:12 Dose: 100 mls/hr Iopamidol (Isovue-300 (61%)) 150 ml IV . DIRECTED [facility] Last Admin: 04/12/19 17:10 Dose: 150 ml - Exam Quality Assessment: Denies: Supplemental Oxygen General: Reports: Alert, Oriented, Cooperative, No Acute Distress Lungs: Reports: Normal Respiratory Effort GI/Abdominal Exam: Soft, No Distention Extremities: No Pedal Edema Psy/Mental Status: Reports: Alert, Normal Affect
== END 2019-04-14 11:15 | disposition home or self-care (01) | DRG 244 ==
LOC: JP.ED 15:11 → JP.ICU 18:18 → JP.MS 04-13 10:47
PROVIDERS: ADMIT Internal Medicine; ATTEND Internal Medicine
DX: K57.32 Diverticulitis of large intestine without perforation or abscess without bleeding (principal); K21.9 Gastro-esophageal reflux disease without esophagitis; G47.33 Obstructive sleep apnea (adult) (pediatric); M19.90 Unspecified osteoarthritis, unspecified site; E66.9 Obesity, unspecified; Z68.30 Body mass index [BMI] 30.0-30.9, adult; Z99.81 Dependence on supplemental oxygen
CPT/HCPCS: 36415; 74177; 80048; 81001; 85027; 86140; 87040; 96360; 99285-25; A9270-GY; J0744; J3490; J7030; J7120